=== PATIENT | female | born 1990 | race African-American/Black ===

== ENCOUNTER 2023-09-10 09:51 | Emergency (ER) | payer BC ==
[2023-09-10 10:02] VITALS: BP 146/92; PULSE 64; RESP 18; TEMP 97.5; BMI 37.1
[2023-09-10 10:50] LABS: BASO % 0.4 % (0-2.0); EOS % 1.3 % (0-4.5); HEMATOCRIT 41.3 % (32.4-45.2); HEMOGLOBIN 13.9 GM/dL (10.7-15.3); LYMPH % 30.1 % (8-40); MCH 29.9 pg (25.7-33.7); MCHC 33.8 g/dl (32.0-36.0); MEAN CELL VOLUME 88.5 fl (80-96); MEAN PLT VOLUME 7.8 fl (7.5-11.1); MONO % 6.5 % (3.8-10.2); NEUT % 61.7 % (42.8-82.8); PLATELET COUNT 251 10^3/uL (134-434); RBC 4.67 M/mm3 (3.60-5.2); RDW 13.2 % (11.6-15.6); WHITE BLOOD COUNT 7.6 K/mm3 (4.0-10.0)
[2023-09-10 10:56] LABS: INR 0.95 (0.83-1.09); PROTHROMBIN TIME (PATIENT) 10.8 SEC (9.7-13.0)
[2023-09-10 10:59] LABS: ACTIVATED PTT 34.2 SECONDS (25.2-36.5)
[2023-09-10 11:13] LABS: EPI CELLS >36 /uL (0-25.1); HYALINE CASTS 2 /uL (0-3.1); PH,URINE 5.5 (5.0-8.0); URINE APPEARANCE CLOUDY; URINE BACTERIA 1525 /uL (0-1359); URINE BILIRUBIN NEGATIVE (NEGATIVE); URINE COLOR YELLOW; URINE GLUCOSE (UA) NEGATIVE (NEGATIVE); URINE KETONE NEGATIVE (NEGATIVE); URINE LEUK ESTERASE TRACE (NEGATIVE); URINE NITRITE NEGATIVE (NEGATIVE); URINE PROTEIN NEGATIVE (NEGATIVE); URINE WBC 97 /uL (0-25.8)
[2023-09-10 11:17] LABS: URINE RBC 18 /uL (0-23.9)
[2023-09-10 11:23] LABS: BLOOD UREA NITROGEN 8.9 mg/dL (7-18); CHLORIDE 108 mmol/L (98-107); CO2 25 mmol/L (21-32); CREATININE 0.8 mg/dL (0.55-1.3); GLUCOSE,RANDOM 143 mg/dL (74-106); POTASSIUM 3.6 mmol/L (3.5-5.1); SODIUM 139 mmol/L (136-145)
== END 2023-09-10 13:38 | disposition home or self-care (01) ==
LOC: JER 09:51
DX: O20.9 Hemorrhage in early pregnancy, unspecified (principal); Z3A.00 Weeks of gestation of pregnancy not specified
CPT/HCPCS: 36415; 76817-TC; 80048; 81003; 84702; 84703; 85025; 85610; 85730; 86850; 86900; 86901; 87086; 99284-25

== ENCOUNTER 2024-04-16 09:08 | Emergency (ER) | payer BC ==
[2024-04-16 09:14] VITALS: BP 154/101; PULSE 95; RESP 18; TEMP 99.3; BMI 40.7
[2024-04-16] MEDS ORDERED: ACETAMINOPHEN 500 MG TABLET (FP) ONE (09:51)
[2024-04-16] MEDS: ACETAMINOPHEN 500 MG TABLET (FP) PO ONE (09:58)
[2024-04-16 10:32] LABS: THROAT:GRP A STREP NOT DETECTED (NOTDETECTED)
== END 2024-04-16 11:33 | disposition home or self-care (01) ==
LOC: JERFT 09:08
DX: U07.1 COVID-19 (principal); R05.9 Cough, unspecified
CPT/HCPCS: 0241U-QW; 87651; 99283-25

== ENCOUNTER 2024-07-10 12:16 | Inpatient (IN) | payer BC ==
[2024-07-10 13:19] LABS: ABSOLUTE IMMATURE GRANULOCYTES 0.07 x10^3/uL (0.0-0.031); BASOPHILS # 0.02 x10^3/uL (0.01-0.08); EOSINOPHIL % 0.6 % (0.7-5.8); EOSINOPHILS # 0.09 x10^3/uL (0.04-0.36); HEMATOCRIT 42.7 % (34.1-44.9); HEMOGLOBIN 14.5 g/dL (11.2-15.7); MEAN CELL VOLUME 85.6 fl (79.4-94.8); MEAN PLT VOLUME 10.3 fl (9.4-12.3); MONOCYTE # 1.08 x10^3/uL (0.24-0.86); MONOCYTE % 7.4 % (4.7-12.5); PLATELET COUNT 242 x10^3/uL (182-369)
[2024-07-10 13:22] LABS: EPI CELLS >36 /uL (0-25.1); HYALINE CASTS 25 /uL (0-3.1); PH,URINE 5.5 (5.0-8.0); URINE APPEARANCE TURBID; URINE BACTERIA >9,000 /uL (0-1359); URINE BILIRUBIN 1+ (NEGATIVE); URINE COLOR ORANGE; URINE GLUCOSE (UA) NEGATIVE (NEGATIVE); URINE KETONE TRACE (NEGATIVE); URINE LEUK ESTERASE 1+ (NEGATIVE); URINE NITRITE NEGATIVE (NEGATIVE); URINE PROTEIN 1+ (NEGATIVE); URINE RBC 67 /uL (0-23.9); URINE WBC 252 /uL (0-25.8)
[2024-07-10 13:44] LABS: POTASSIUM 3.5 mmol/L (3.5-5.1)
[2024-07-10 13:46] LABS: CALCIUM 9.7 mg/dL (8.5-10.1)
[2024-07-10 13:47] LABS: ALBUMIN 3.4 g/dl (3.4-5.0); BLOOD UREA NITROGEN 6.5 mg/dL (7-18)
[2024-07-10 13:50] LABS: CREATININE 0.8 mg/dL (0.55-1.3)
[2024-07-10 13:51] LABS: BILIRUBIN,TOTAL 1.2 mg/dL (0.2-1); TOT PROT 7.6 g/dl (6.4-8.2)
[2024-07-10] MEDS ORDERED: KETOROLAC TROMETHAMINE 15 MG/ML VIAL ONE (15:02)
[2024-07-10] MEDS: KETOROLAC TROMETHAMINE 15 MG/ML VIAL IVPUSH ONE (15:09)
[2024-07-10] MEDS ORDERED: PIPERACILLIN/TAZOB 4.5 GM 4.5 GM/100 ML BAG IVPB ONE (16:49)
[2024-07-10] MEDS ORDERED: LORATADINE 10 MG TABLET ONE (16:49)
[2024-07-10] MEDS: PIPERACILLIN/TAZOB 4.5 GM 4.5 GM in DEXTROSE 5%-WATER 100 ML IVPB ONE (16:59)
[2024-07-10] MEDS ORDERED: ACETAMINOPHEN 325 MG TABLET (FP) ONE (17:12)
[2024-07-10] MEDS: ACETAMINOPHEN 500 MG TABLET (FP) PO ONE (17:16)
[2024-07-10] MEDS ORDERED: ACETAMINOPHEN 1000 MG/100 ML BAG IVPB PRN (18:56)
[2024-07-10] MEDS ORDERED: D5-NS + 20 MEQ KCL - 20 MEQ/1,000 ML INFUS.BAG IV SCH (19:00)
[2024-07-10] MEDS: D5-NS + 20 MEQ KCL - 20 MEQ/1,000 ML INFUS.BAG IV SCH (20:18)
[2024-07-10 20:52] VITALS: BMI 41.1
[2024-07-10] MEDS: CEFTRIAXONE 1 G/50 ML PREMIX 50 ML IVPB ONE (21:29)
[2024-07-11] MEDS: KETOROLAC TROMETHAMINE 15 MG/ML VIAL IVPUSH PRN (02:19)
[2024-07-11 08:50] LABS: ABSOLUTE IMMATURE GRANULOCYTES 0.06 x10^3/uL (0.0-0.031); BASOPHILS # 0.02 x10^3/uL (0.01-0.08); EOSINOPHIL % 0.9 % (0.7-5.8); EOSINOPHILS # 0.12 x10^3/uL (0.04-0.36); HEMATOCRIT 38.4 % (34.1-44.9); HEMOGLOBIN 13.1 g/dL (11.2-15.7); MCHC 34.1 g/dl (32.2-35.5); MEAN PLT VOLUME 10.7 fl (9.4-12.3); MONOCYTE # 1.16 x10^3/uL (0.24-0.86); PLATELET COUNT 210 x10^3/uL (182-369)
[2024-07-11 09:05] LABS: POTASSIUM 3.3 mmol/L (3.5-5.1)
[2024-07-11 09:12] LABS: BLOOD UREA NITROGEN 5.8 mg/dL (7-18); CALCIUM 8.8 mg/dL (8.5-10.1); MAGNESIUM 2.3 mg/dL (1.8-2.4)
[2024-07-11 09:13] LABS: ALBUMIN 2.9 g/dl (3.4-5.0)
[2024-07-11 09:15] LABS: CREATININE 0.7 mg/dL (0.55-1.3)
[2024-07-11 09:18] LABS: BILIRUBIN,TOTAL 0.9 mg/dL (0.2-1); TOT PROT 6.4 g/dl (6.4-8.2)
[2024-07-11 09:19] LABS: PHOSPHOROUS 2.3 mg/dL (2.5-4.9)
[2024-07-11] MEDS: KETOROLAC TROMETHAMINE 15 MG/ML VIAL IVPUSH SCH (09:21)
[2024-07-11] MEDS ORDERED: PIPERACILLIN/TAZOB 4.5 GM 4.5 GM/100 ML BAG IVPB SCH (10:00)
[2024-07-11] MEDS: PIPERACILLIN/TAZOB 4.5 GM 4.5 GM/100 ML BAG IVPB SCH (10:41)
[2024-07-11] MEDS: ACETAMINOPHEN 500 MG TABLET (FP) PO SCH (13:00)
[2024-07-11] MEDS: NAPH,MB-DB/K PH,MBDB POWDER PACKET PO ONE (14:25)
[2024-07-11] MEDS: POTASSIUM CHLORIDE ORAL LIQUID 20 MEQ/15 ML PO ONE (14:30)
[2024-07-11] MEDS ORDERED: CEFTRIAXONE 1 G/50 ML PREMIX 50 ML IVPB SCH (22:00)
[2024-07-12 08:27] LABS: HEMATOCRIT 37.7 % (34.1-44.9); HEMOGLOBIN 12.6 g/dL (11.2-15.7); MCHC 33.4 g/dl (32.2-35.5); MEAN CELL VOLUME 85.3 fl (79.4-94.8); MEAN PLT VOLUME 10.3 fl (9.4-12.3); PLATELET COUNT 206 x10^3/uL (182-369)
[2024-07-12 08:33] LABS: INR 1.39 (0.83-1.09); PROTHROMBIN TIME (PATIENT) 15.3 SEC (9.7-13.0)
[2024-07-12 08:50] LABS: ALBUMIN 2.6 g/dl (3.4-5.0); BLOOD UREA NITROGEN 6.1 mg/dL (7-18)
[2024-07-12 08:53] LABS: CREATININE 0.8 mg/dL (0.55-1.3)
[2024-07-12 08:55] LABS: TOT PROT 6.1 g/dl (6.4-8.2)
[2024-07-12] MEDS: ENOXAPARIN NA (PORCINE) 40 MG/0.4 ML DISP.SYRIN SQ SCH (12:00)
[2024-07-12 14:12] LABS: POTASSIUM 3.4 mmol/L (3.5-5.1)
[2024-07-12] MEDS: LACTATED RINGERS SOLUTION 1,000 ML/1,000 ML INFUS.BAG IV SCH (15:15)
[2024-07-12] MEDS: PIPERACILLIN/TAZOB 4.5 GM 4.5 GM/100 ML BAG IVPB SCH (21:36)
[2024-07-12 21:55] VITALS: RESP 18
[2024-07-13 08:50] LABS: HEMATOCRIT 37.6 % (34.1-44.9); HEMOGLOBIN 12.7 g/dL (11.2-15.7); MCHC 33.8 g/dl (32.2-35.5); MEAN CELL VOLUME 85.1 fl (79.4-94.8); MEAN PLT VOLUME 10.7 fl (9.4-12.3); PLATELET COUNT 234 x10^3/uL (182-369)
[2024-07-13 09:50] LABS: POTASSIUM 3.3 mmol/L (3.5-5.1)
[2024-07-13 10:33] LABS: BLOOD UREA NITROGEN 5.3 mg/dL (7-18)
[2024-07-13 10:34] LABS: ALBUMIN 2.6 g/dl (3.4-5.0); CALCIUM 9.2 mg/dL (8.5-10.1)
[2024-07-13 10:38] LABS: CREATININE 0.6 mg/dL (0.55-1.3)
[2024-07-13 10:39] LABS: BILIRUBIN,TOTAL 0.9 mg/dL (0.2-1)
[2024-07-13 10:42] LABS: TOT PROT 5.9 g/dl (6.4-8.2)
[2024-07-13] MEDS: POTASSIUM CHLORIDE ORAL LIQUID 20 MEQ/15 ML PO SCH (11:28)
[2024-07-13] MEDS: PIPERACILLIN/TAZOB 4.5 GM 4.5 GM/100 ML BAG IVPB SCH (17:25)
[2024-07-14] MEDS: diphenhydrAMINE HCL 25 MG CAPSULE (FP) PO ONE (01:56)
[2024-07-14 14:31] VITALS: BP 138/86; PULSE 92; TEMP 97.9
== END 2024-07-14 15:40 | disposition home or self-care (01) | DRG 372 ==
LOC: JER 12:16 → JERBED 17:45 → J6S 19:49
PROVIDERS: ADMIT Student in an Organized Health Care Education/Training Program; ATTEND Internal Medicine
DX: K35.890 Other acute appendicitis without perforation or gangrene (principal); Z68.41 Body mass index [BMI] 40.0-44.9, adult; F17.200 Nicotine dependence, unspecified, uncomplicated; E66.01 Morbid (severe) obesity due to excess calories; F41.8 Other specified anxiety disorders; R73.03 Prediabetes
CPT/HCPCS: 36415; 74177-TC; 80053; 81003; 83036; 83690; 83735; 84100; 84703; 85025; 85027; 85610; 87040; 87086; 99285-25